=== PATIENT | male | born 1970 | race Caucasian/White ===

== ENCOUNTER 2022-08-02 13:54 | Outpatient (RCR) | payer BC, SELFPAY ==
[2022-04-19 15:09] LABS: Albumin* 4.2 g/dL (3.3-5.0); Chloride* 107 mmol/L (96-114)
[2022-04-19 15:10] LABS: Potassium* 4.7 mmol/L (3.6-5.1); Sodium* 143 mmol/L (135-149)
[2022-04-19 15:12] LABS: Bilirubin Total* 1.8 mg/dL (0.1-1.5); Carbon Dioxide* 28 mmol/L (20-32); Creatinine* 2.2 mg/dL (0.5-1.5); Estimated Glomerular Filt Rate 35 ml/min; Total Protein* 7.5 g/dL (6.0-8.3)
[2022-04-19 15:13] LABS: Alanine Aminotransferase* 20 U/L (4-50); Alkaline Phosphatase* 104 U/L (40-150); Aspartate Amino Transferase* 24 U/L (12-35); Blood Urea Nitrogen* 31 mg/dL (7-30); Calcium* 9.2 mg/dL (8.4-10.6); Glucose* 105 mg/dL (60-115); Hematocrit 43.8 % (37.0-53.0); Hemoglobin* 14.9 gm/dL (13.5-17.5); Mean Corpuscular HGB Conc 34 gm/dL (32-36); Mean Corpuscular Hemoglobin 29 pg (26-34); Mean Corpuscular Volume 87 fL (80-100); Platelet Count* 156 K/uL (140-440); Red Blood Count 5.06 m/uL (4.30-5.90); White Blood Count* 5.22 K/uL (4.50-11.00)
[2022-04-19 15:16] LABS: Slide Review Reflex No
[2022-07-12 14:34] LABS: Hematocrit 42.3 % (37.0-53.0); Hemoglobin* 14.4 gm/dL (13.5-17.5); Mean Corpuscular HGB Conc 34 gm/dL (32-36); Mean Corpuscular Hemoglobin 30 pg (26-34); Mean Corpuscular Volume 87 fL (80-100); Platelet Count* 155 K/uL (140-440); Red Blood Count 4.87 m/uL (4.30-5.90); White Blood Count* 4.98 K/uL (4.50-11.00)
[2022-07-12 14:38] LABS: Albumin* 4.6 g/dL (3.3-5.0); Chloride* 107 mmol/L (96-114); Sodium* 142 mmol/L (135-149)
[2022-07-12 14:39] LABS: Potassium* 4.6 mmol/L (3.6-5.1)
[2022-07-12 14:41] LABS: Aspartate Amino Transferase* 29 U/L (12-35); Blood Urea Nitrogen* 25 mg/dL (7-30); Carbon Dioxide* 24 mmol/L (20-32); Creatinine* 2.3 mg/dL (0.5-1.5); Estimated Glomerular Filt Rate 33 ml/min; Total Protein* 7.7 g/dL (6.0-8.3)
[2022-07-12 14:42] LABS: Alanine Aminotransferase* 24 U/L (4-50); Alkaline Phosphatase* 95 U/L (40-150); Calcium* 9.3 mg/dL (8.4-10.6); Glucose* 115 mg/dL (60-115)
[2022-07-12 15:09] LABS: Slide Review Reflex No
[2022-08-02 14:44] LABS: Albumin* 4.4 g/dL (3.3-5.0); Chloride* 110 mmol/L (96-114); Potassium* 4.5 mmol/L (3.6-5.1); Sodium* 143 mmol/L (135-149)
[2022-08-02 14:46] LABS: Bilirubin Total* 1.6 mg/dL (0.1-1.5); Creatinine* 2.2 mg/dL (0.5-1.5); Estimated Glomerular Filt Rate 35 ml/min
[2022-08-02 14:47] LABS: Alanine Aminotransferase* 25 U/L (4-50); Alkaline Phosphatase* 98 U/L (40-150); Aspartate Amino Transferase* 25 U/L (12-35); Blood Urea Nitrogen* 26 mg/dL (7-30); Carbon Dioxide* 24 mmol/L (20-32); Glucose* 106 mg/dL (60-115); Total Protein* 7.4 g/dL (6.0-8.3)
[2022-08-02 15:32] LABS: Hematocrit 40.2 % (37.0-53.0); Mean Corpuscular HGB Conc 35 gm/dL (32-36); Mean Corpuscular Hemoglobin 30 pg (26-34); Mean Corpuscular Volume 86 fL (80-100); Platelet Count* 154 K/uL (140-440); Red Blood Count 4.67 m/uL (4.30-5.90)
[2022-08-02 15:47] LABS: Slide Review Reflex No
[2023-01-17 14:25] LABS: Basophils Absolute Auto 0.01 K/uL (0.00-0.30); Basophils Percent Auto 0.2 % (0.0-3.0); Eosinophils Absolute Auto 0.11 K/uL (0.00-0.50); Eosinophils Percent Auto 2.2 % (0.0-7.0); Hematocrit 39.8 % (37.0-53.0); Hemoglobin* 13.4 gm/dL (13.5-17.5); Immature Granulocytes Abs Auto 0.01 K/uL (0.00-0.30); Immature Granulocytes Pct Auto 0.2 %; Lymphocytes Absolute Auto 1.89 K/uL (0.90-2.90); Lymphocytes Percent Auto 37.8 % (20-44); Mean Corpuscular HGB Conc 34 gm/dL (32-36); Mean Corpuscular Hemoglobin 29 pg (26-34); Mean Corpuscular Volume 85 fL (80-100); Monocytes Percent Auto 9.8 % (0.0-11.0); Neutrophils Absolute Auto 2.49 K/uL (1.7-7.0); Neutrophils Percent Auto 49.8 % (42.0-72.0); Platelet Count* 183 K/uL (140-440); RDW Coefficient of Variation % 13.7 % (11.5-15.5); Red Blood Count 4.71 m/uL (4.30-5.90)
[2023-01-17 14:34] LABS: Slide Review Reflex No
[2023-01-17 21:53] LABS: Albumin* 4.1 g/dL (3.3-5.0)
[2023-01-17 21:54] LABS: Chloride* 109 mmol/L (96-114); Potassium* 4.2 mmol/L (3.6-5.1); Sodium* 144 mmol/L (135-149)
[2023-01-17 21:56] LABS: Bilirubin Direct* 0.4 mg/dL (0.0-0.5); Bilirubin Total* 1.4 mg/dL (0.1-1.5); Carbon Dioxide* 25 mmol/L (20-32); Creatinine* 2.1 mg/dL (0.5-1.5); Estimated Glomerular Filt Rate 37 ml/min; Total Protein* 7.3 g/dL (6.0-8.3)
[2023-01-17 21:57] LABS: Alanine Aminotransferase* 39 U/L (4-50); Alkaline Phosphatase* 94 U/L (40-150); Aspartate Amino Transferase* 26 U/L (12-35); Blood Urea Nitrogen* 23 mg/dL (7-30); Calcium* 9.2 mg/dL (8.4-10.6); Glucose* 117 mg/dL (60-115)
[2023-04-12 13:34] LABS: Basophils Absolute Auto 0.01 K/uL (0.00-0.30); Basophils Percent Auto 0.2 % (0.0-3.0); Eosinophils Absolute Auto 0.08 K/uL (0.00-0.50); Eosinophils Percent Auto 1.5 % (0.0-7.0); Hematocrit 40.4 % (37.0-53.0); Hemoglobin* 13.7 gm/dL (13.5-17.5); Immature Granulocytes Abs Auto 0.03 K/uL (0.00-0.30); Immature Granulocytes Pct Auto 0.6 %; Lymphocytes Absolute Auto 1.71 K/uL (0.90-2.90); Lymphocytes Percent Auto 32.2 % (20-44); Mean Corpuscular HGB Conc 34 gm/dL (32-36); Mean Corpuscular Hemoglobin 29 pg (26-34); Mean Corpuscular Volume 84 fL (80-100); Monocytes Percent Auto 8.9 % (0.0-11.0); Neutrophils Absolute Auto 3.01 K/uL (1.7-7.0); Neutrophils Percent Auto 56.6 % (42.0-72.0); Platelet Count* 164 K/uL (140-440); RDW Coefficient of Variation % 13.5 % (11.5-15.5); Red Blood Count 4.79 m/uL (4.30-5.90); White Blood Count* 5.31 K/uL (4.50-11.00)
[2023-04-12 13:39] LABS: Slide Review Reflex No
[2023-04-12 13:47] LABS: Albumin* 4.2 g/dL (3.3-5.0); Chloride* 107 mmol/L (96-114)
[2023-04-12 13:48] LABS: Potassium* 4.2 mmol/L (3.6-5.1); Sodium* 140 mmol/L (135-149)
[2023-04-12 13:50] LABS: Carbon Dioxide* 26 mmol/L (20-32); Creatinine* 2.1 mg/dL (0.5-1.5); Estimated Glomerular Filt Rate 37 ml/min
[2023-04-12 13:51] LABS: Alanine Aminotransferase* 16 U/L (4-50); Alkaline Phosphatase* 76 U/L (40-150); Aspartate Amino Transferase* 21 U/L (12-35); Bilirubin Direct* 0.2 mg/dL (0.0-0.5); Bilirubin Total* 1.8 mg/dL (0.1-1.5); Blood Urea Nitrogen* 26 mg/dL (7-30); Glucose* 105 mg/dL (60-115); Total Protein* 7.4 g/dL (6.0-8.3)
== END 2023-07-04 15:05 | disposition home or self-care (01) ==
LOC: LAB 13:54
DX: Z94.4 Liver transplant status (principal); Z79.899 Other long term (current) drug therapy
CPT/HCPCS: 36415; 80053; 82248; 85025; 85027

== ENCOUNTER 2023-04-12 08:16 | Outpatient (CLI) | payer BC, SELFPAY | END 2023-04-12 08:17 | disposition home or self-care (01) | PROVIDERS: PCP Physician Assistant Medical; Visit Provider Physician Assistant Medical | DX: G25.0 Essential tremor (principal); E53.8 Deficiency of other specified B group vitamins | CPT/HCPCS: 82306; 82607; 82728; 84443 ==

== ENCOUNTER 2023-05-04 17:08 | Outpatient (RCR) | payer BC, SELFPAY ==
[2023-05-03 17:29] VITALS: BP 120/76; PULSE 74; RESP 18; TEMP 36.6; O2SAT 98
[2023-05-03] MEDS: 0.9 % SODIUM CHLORIDE 250 ml IV (17:39)
[2023-05-03 18:45] VITALS: BP 125/79; PULSE 70; RESP 16; TEMP 37; O2SAT 99
[2023-05-03 19:38] VITALS: BP 117/83; PULSE 68; RESP 18; TEMP 36.9; O2SAT 99
--- NOTE | 2023-05-03 19:43 | PC.NURSE ---
Pt came for outpatient transfusion. VSS. Pt tolerated well. IV inserted upon arrival; IV left in place as Pt will be back on 05/04 for next transfusion.? ?
[2023-05-04 17:20] VITALS: BP 123/75; PULSE 74; RESP 18; TEMP 36.7; O2SAT 97
[2023-05-04] MEDS: SODIUM CHLORIDE 0.9 % (FLUSH) 10 ML SYRINGE 5 ML IVF (17:46)
[2023-05-04] MEDS: 0.9 % SODIUM CHLORIDE 250 ml IV (17:47)
--- NOTE | 2023-05-04 18:47 | PC.NURSE ---
Pt came in for out patient infusion. VSS pre infusion. Pt's IV that was placed yesterday had pink around site and above dressing. IV removed. [place]/redness outlined. New IV placed.
[2023-05-04 18:55] VITALS: BP 137/81; PULSE 68; RESP 18; TEMP 36.5; O2SAT 98
[2023-05-04 19:26] VITALS: BP 143/78; PULSE 67; RESP 18; TEMP 36.8; O2SAT 99
[2023-05-05] MEDS: 0.9 % SODIUM CHLORIDE 250 ml IV (17:30)
[2023-05-05] MEDS: SODIUM CHLORIDE 0.9 % (FLUSH) 10 ML SYRINGE 5 ML IVF (17:30)
[2023-05-05 17:31] VITALS: BP 131/78; PULSE 72; RESP 16; TEMP 37.1; O2SAT 96
--- NOTE | 2023-05-05 18:16 | PC.NURSE ---
Outpatient infusion: Pt arrived @ 1700 for last dose of IV rimdesivir. IV in R forearm was removed at the end of the infusion.
[2023-05-05 18:35] VITALS: BP 138/84; PULSE 63; RESP 16; TEMP 36.7; O2SAT 98
== END 2023-05-07 15:56 | disposition home or self-care (01) ==
LOC: MS OUT 17:08
PROVIDERS: PCP Family Medicine; Visit Provider Family Medicine
DX: U07.1 COVID-19 (principal)
CPT/HCPCS: 96365; 99211; J7050

== ENCOUNTER 2023-06-19 11:30 | Outpatient (CLI) | payer BC, SELFPAY | END 2023-06-19 11:31 | disposition home or self-care (01) | LOC: FRMREF 11:33 | PROVIDERS: PCP Physician Assistant Medical; Visit Provider Family Medicine | DX: L40.50 Arthropathic psoriasis, unspecified (principal); D86.9 Sarcoidosis, unspecified; R20.8 Other disturbances of skin sensation | CPT/HCPCS: 86140 ==

== ENCOUNTER 2023-07-18 08:10 | Outpatient (CLI) | payer BC, SELFPAY | END 2023-07-18 08:11 | disposition home or self-care (01) | PROVIDERS: PCP Physician Assistant Medical; Visit Provider Physician Assistant Medical | DX: R17 Unspecified jaundice (principal) | CPT/HCPCS: 36415; 80053; 82248 ==

== ENCOUNTER 2024-01-30 14:39 | Outpatient (RCR) | payer BC, SELFPAY ==
[2024-01-30 15:07] LABS: Basophils Absolute Auto 0.02 K/uL (0.00-0.30); Basophils Percent Auto 0.3 % (0.0-3.0); Eosinophils Absolute Auto 0.07 K/uL (0.00-0.50); Hematocrit 43.8 % (37.0-53.0); Hemoglobin* 14.5 gm/dL (13.5-17.5); Immature Granulocytes Abs Auto 0.22 K/uL (0.00-0.30); Lymphocytes Absolute Auto 2.79 K/uL (0.90-2.90); Lymphocytes Percent Auto 38.1 % (20-44); Mean Corpuscular HGB Conc 33 gm/dL (32-36); Mean Corpuscular Hemoglobin 29 pg (26-34); Mean Corpuscular Volume 86 fL (80-100); Monocytes Percent Auto 7.8 % (0.0-11.0); Neutrophils Absolute Auto 3.66 K/uL (1.7-7.0); Neutrophils Percent Auto 49.8 % (42.0-72.0); Platelet Count* 191 K/uL (140-440); RDW Coefficient of Variation % 13.6 % (11.5-15.5); Red Blood Count 5.07 m/uL (4.30-5.90); White Blood Count* 7.33 K/uL (4.50-11.00)
[2024-01-30 15:08] LABS: Slide Review Reflex No
[2024-01-30 15:25] LABS: Albumin* 4.1 g/dL (3.3-5.0); Chloride* 114 mmol/L (96-114); Potassium* 4.2 mmol/L (3.6-5.1); Sodium* 140 mmol/L (135-149)
[2024-01-30 15:27] LABS: Creatinine* 2.1 mg/dL (0.5-1.5); Estimated Glomerular Filt Rate 36 ml/min
[2024-01-30 15:28] LABS: Alanine Aminotransferase* 20 U/L (4-50); Alkaline Phosphatase* 86 U/L (40-150); Anion Gap 4 mEq/L (7-15); Aspartate Amino Transferase* 21 U/L (12-35); Bilirubin Direct* 0.5 mg/dL (0.0-0.5); Bilirubin Total* 1.2 mg/dL (0.1-1.5); Blood Urea Nitrogen* 39 mg/dL (7-30); Carbon Dioxide* 22 mmol/L (20-32); Glucose* 112 mg/dL (60-115); Total Protein* 7.5 g/dL (6.0-8.3)
[2024-01-30 15:29] LABS: Calcium* 9.1 mg/dL (8.4-10.6)
[2024-04-24 14:37] LABS: Basophils Absolute Auto 0.03 K/uL (0.00-0.30); Basophils Percent Auto 0.6 % (0.0-3.0); Eosinophils Absolute Auto 0.14 K/uL (0.00-0.50); Eosinophils Percent Auto 2.8 % (0.0-7.0); Hematocrit 41.1 % (37.0-53.0); Hemoglobin* 13.5 gm/dL (13.5-17.5); Immature Granulocytes Abs Auto 0.02 K/uL (0.00-0.30); Immature Granulocytes Pct Auto 0.4 %; Lymphocytes Absolute Auto 1.68 K/uL (0.90-2.90); Lymphocytes Percent Auto 33.9 % (20-44); Mean Corpuscular HGB Conc 33 gm/dL (32-36); Mean Corpuscular Hemoglobin 28 pg (26-34); Mean Corpuscular Volume 86 fL (80-100); Monocytes Percent Auto 9.7 % (0.0-11.0); Neutrophils Percent Auto 52.6 % (42.0-72.0); Platelet Count* 154 K/uL (140-440); RDW Coefficient of Variation % 13.5 % (11.5-15.5); Red Blood Count 4.78 m/uL (4.30-5.90); White Blood Count* 4.95 K/uL (4.50-11.00)
[2024-04-24 14:41] LABS: Slide Review Reflex No
[2024-04-24 14:52] LABS: Albumin* 4.2 g/dL (3.3-5.0)
[2024-04-24 14:53] LABS: Chloride* 108 mmol/L (96-114); Potassium* 4.5 mmol/L (3.6-5.1); Sodium* 140 mmol/L (135-149)
[2024-04-24 14:55] LABS: Anion Gap 8 mEq/L (7-15); Carbon Dioxide* 24 mmol/L (20-32); Creatinine* 2.2 mg/dL (0.5-1.5); Estimated Glomerular Filt Rate 35 ml/min
[2024-04-24 14:56] LABS: Alanine Aminotransferase* 16 U/L (4-50); Alkaline Phosphatase* 86 U/L (40-150); Aspartate Amino Transferase* 24 U/L (12-35); Bilirubin Direct* 0.5 mg/dL (0.0-0.5); Bilirubin Total* 1.6 mg/dL (0.1-1.5); Blood Urea Nitrogen* 27 mg/dL (7-30); Calcium* 9.4 mg/dL (8.4-10.6); Glucose* 114 mg/dL (60-115); Total Protein* 7.6 g/dL (6.0-8.3)
== END 2025-01-14 10:54 | disposition home or self-care (01) ==
LOC: LAB 14:39
PROVIDERS: PCP Physician Assistant Medical; Visit Provider Physician Assistant
DX: Z79.899 Other long term (current) drug therapy (principal); Z94.4 Liver transplant status
CPT/HCPCS: 36415; 80053; 82248; 85025

== ENCOUNTER 2024-07-24 14:21 | Outpatient (RCR) | payer BC, SELFPAY ==
[2024-07-24 14:52] LABS: Hematocrit* 41.4 % (37.0-53.0); Hemoglobin* 13.6 gm/dL (13.5-17.5); Immature Granulocytes Abs Auto 0.04 K/uL (0.00-0.30); Immature Granulocytes Pct Auto 0.9 %; Lymphocytes Absolute Auto 1.64 K/uL (0.90-2.90); Mean Corpuscular HGB Conc 33 gm/dL (32-36); Mean Corpuscular Hemoglobin 28 pg (26-34); Mean Corpuscular Volume 86 fL (80-100); RDW Coefficient of Variation % 13.7 % (11.5-15.5); Red Blood Count* 4.82 m/uL (4.30-5.90); White Blood Count* 4.66 K/uL (4.50-11.00)
[2024-07-24 15:11] LABS: Slide Review Reflex No
[2024-07-24 15:52] LABS: Albumin* 4.3 g/dL (3.3-5.0); Chloride* 104 mmol/L (96-114); Sodium* 139 mmol/L (135-149)
[2024-07-24 15:55] LABS: Alkaline Phosphatase* 87 U/L (40-150); Anion Gap 10 mEq/L (7-15); Aspartate Amino Transferase* 22 U/L (12-35); Bilirubin Direct* 0.4 mg/dL (0.0-0.5); Bilirubin Total* 1.2 mg/dL (0.1-1.5); Blood Urea Nitrogen* 25 mg/dL (7-30); Carbon Dioxide* 25 mmol/L (20-32); Creatinine* 2.0 mg/dL (0.5-1.5); Estimated Glomerular Filt Rate 39 ml/min; Potassium* 4.8 mmol/L (3.6-5.1); Total Protein* 7.5 g/dL (6.0-8.3)
[2024-07-24 15:56] LABS: Alanine Aminotransferase* 16 U/L (4-50); Calcium* 9.4 mg/dL (8.4-10.6); Glucose* 112 mg/dL (60-115)
== END 2025-07-04 23:59 | disposition home or self-care (01) ==
LOC: NPINS 14:21
PROVIDERS: PCP Physician Assistant Medical; Visit Provider Physician Assistant
DX: Z94.4 Liver transplant status (principal); Z79.899 Other long term (current) drug therapy
CPT/HCPCS: 80053; 82248; 85025

== ENCOUNTER 2024-10-15 08:08 | Outpatient (CLI) | payer BC, SELFPAY | END 2024-10-15 08:09 | disposition home or self-care (01) | LOC: NFLDREF 10-18 03:34 | PROVIDERS: PCP Physician Assistant Medical; Referring Provider Physician Assistant Medical; Visit Provider Physician Assistant Medical | DX: Z11.1 Encounter for screening for respiratory tuberculosis (principal) | CPT/HCPCS: 86480 ==

== ENCOUNTER 2025-01-07 08:00 | Outpatient (CLI) | payer BC, SELFPAY ==
[2025-01-07 14:04] LABS: Basophils Absolute Auto 0.02 K/uL (0.00-0.30); Basophils Percent Auto 0.3 % (0.0-3.0); Eosinophils Absolute Auto 0.12 K/uL (0.00-0.50); Hematocrit 41.1 % (37.0-53.0); Hemoglobin* 13.8 gm/dL (13.5-17.5); Immature Granulocytes Abs Auto 0.03 K/uL (0.00-0.30); Immature Granulocytes Pct Auto 0.5 %; Lymphocytes Absolute Auto 1.84 K/uL (0.90-2.90); Lymphocytes Percent Auto 30.8 % (20-44); Mean Corpuscular HGB Conc 34 gm/dL (32-36); Mean Corpuscular Hemoglobin 29 pg (26-34); Mean Corpuscular Volume 86 fL (80-100); Neutrophils Absolute Auto 3.43 K/uL (1.7-7.0); Neutrophils Percent Auto 57.4 % (42.0-72.0); Platelet Count* 190 K/uL (140-440); RDW Coefficient of Variation % 13.6 % (11.5-15.5); Red Blood Count 4.77 m/uL (4.30-5.90); White Blood Count* 5.98 K/uL (4.50-11.00)
[2025-01-07 14:20] LABS: Albumin* 4.3 g/dL (3.3-5.0); Chloride* 106 mmol/L (96-114); Sodium* 142 mmol/L (135-149)
[2025-01-07 14:21] LABS: Potassium* 4.3 mmol/L (3.6-5.1)
[2025-01-07 14:22] LABS: Slide Review Reflex No
[2025-01-07 14:23] LABS: Alanine Aminotransferase* 16 U/L (4-50); Alkaline Phosphatase* 84 U/L (40-150); Anion Gap 12 mEq/L (7-15); Aspartate Amino Transferase* 26 U/L (12-35); Bilirubin Direct* 0.4 mg/dL (0.0-0.5); Bilirubin Total* 1.7 mg/dL (0.1-1.5); Blood Urea Nitrogen* 25 mg/dL (7-30); Carbon Dioxide* 24 mmol/L (20-32); Creatinine* 2.3 mg/dL (0.5-1.5); Estimated Glomerular Filt Rate 33 ml/min; Total Protein* 7.5 g/dL (6.0-8.3)
[2025-01-07 14:24] LABS: Calcium* 9.2 mg/dL (8.4-10.6); Glucose* 100 mg/dL (60-115)
== END 2025-01-07 08:01 | disposition home or self-care (01) ==
LOC: NPINS 08:00
PROVIDERS: PCP Physician Assistant Medical; Visit Provider Physician Assistant
DX: R79.89 Other specified abnormal findings of blood chemistry (principal); F32.0 Major depressive disorder, single episode, mild; E66.9 Obesity, unspecified; Z94.4 Liver transplant status; Z79.01 Long term (current) use of anticoagulants
CPT/HCPCS: 80053; 82248; 85025

== ENCOUNTER 2025-04-15 08:09 | Outpatient (CLI) | payer BC, SELFPAY ==
[2025-04-15 13:28] LABS: Hematocrit 43.7 % (37.0-53.0); Hemoglobin* 14.2 gm/dL (13.5-17.5); Immature Granulocytes Abs Auto 0.03 K/uL (0.00-0.30); Immature Granulocytes Pct Auto 0.3 %; Mean Corpuscular HGB Conc 33 gm/dL (32-36); Mean Corpuscular Hemoglobin 28 pg (26-34); Mean Corpuscular Volume 87 fL (80-100); RDW Coefficient of Variation % 13.1 % (11.5-15.5); Red Blood Count 5.02 m/uL (4.30-5.90); White Blood Count* 9.25 K/uL (4.50-11.00)
[2025-04-15 13:50] LABS: Albumin* 4.2 g/dL (3.3-5.0); Chloride* 105 mmol/L (96-114); Potassium* 4.7 mmol/L (3.6-5.1); Sodium* 139 mmol/L (135-149)
[2025-04-15 13:53] LABS: Alanine Aminotransferase* 17 U/L (4-50); Alkaline Phosphatase* 92 U/L (40-150); Anion Gap 8 mEq/L (7-15); Aspartate Amino Transferase* 26 U/L (12-35); Bilirubin Direct* 0.4 mg/dL (0.0-0.5); Bilirubin Total* 1.4 mg/dL (0.1-1.5); Blood Urea Nitrogen* 24 mg/dL (7-30); Carbon Dioxide* 26 mmol/L (20-32); Creatinine* 2.3 mg/dL (0.5-1.5); Estimated Glomerular Filt Rate 33 ml/min; Total Protein* 7.5 g/dL (6.0-8.3)
[2025-04-15 13:54] LABS: Calcium* 9.4 mg/dL (8.4-10.6); Glucose* 136 mg/dL (60-115); Lymphocytes Absolute Auto 1.50 K/uL (0.90-2.90); Slide Review Reflex No
== END 2025-04-15 08:10 | disposition home or self-care (01) ==
LOC: NPINS 08:10
PROVIDERS: PCP Physician Assistant Medical; Visit Provider Physician Assistant
DX: R17 Unspecified jaundice (principal)
CPT/HCPCS: 80053; 82248; 85025

== ENCOUNTER 2025-08-21 13:28 | Outpatient (CLI) | payer BC, SELFPAY | END 2025-08-21 13:29 | disposition home or self-care (01) | LOC: NFLDREF 08-25 15:19 | PROVIDERS: PCP Physician Assistant Medical; Referring Provider Physician Assistant Medical; Visit Provider Physician Assistant Medical | DX: Z13.9 Encounter for screening, unspecified (principal) | CPT/HCPCS: 80061; 84443; G0103 ==